=== PATIENT | female | born 1985 | race Caucasian/White ===

== ENCOUNTER → 2020-01-21 | Outpatient (CLI) | payer BC, OTHER | END | disposition home or self-care (01) | LOC: CFH 08:22 | PROVIDERS: ATTEND Nurse Practitioner Family | DX: G43.009 Migraine without aura, not intractable, without status migrainosus (principal); E34.8 Other specified endocrine disorders | CPT/HCPCS: 70450 ==

== ENCOUNTER 2020-04-13 08:59 | Day surgery (SDC) | payer BC, OTHER ==
[~2020-04-13] VITALS: Ht 175.3 cm; Wt 102.1 kg
[~2020-04-13 08:59] MED LIST: BUPIVACAINE/PF-EPI 0.5% 1:200K ONE; NORT10CA PO; OMEP40CA42 PO; SUMA100T4 PO
[2020-04-13 09:12] VITALS: BP 131/78
[2020-04-13] MEDS ORDERED: LACTATED RINGERS 1,000 ML IV SCH (09:16)
[2020-04-13] MEDS ORDERED: CHLORHEXIDINE 15 ML UDC MM ONE (09:16)
[2020-04-13] MEDS ORDERED: INDOCYANINE GREEN 25 MG VIAL IV ONE (09:20)
[2020-04-13] MEDS ORDERED: CHLORHEXIDINE 15 ML UDC ONE (09:25)
[2020-04-13 09:42] LABS: HCG UR SG 1.015 (1.003-1.030)
[2020-04-13] MEDS ORDERED: INDOCYANINE GREEN 25 MG VIAL ONE (09:42)
[2020-04-13] MEDS ORDERED: FENTANYL PF 100 MCG/2ML ONE ×3 (09:54→12:27)
[2020-04-13] MEDS ORDERED: MIDAZOLAM 1 MG/ML, 2ML ONE (09:54)
[2020-04-13] MEDS ORDERED: PROPOFOL 10 MG/ML, 20ML ONE (09:55)
[2020-04-13] MEDS ORDERED: ROCURONIUM 10MG/ML,5ML ONE (09:55)
[2020-04-13] MEDS ORDERED: LIDOCAINE-MPF 2% ,5ML ONE (09:55)
[2020-04-13] MEDS ORDERED: KETOROLAC 30 MG/1 ML IVPush PRN (10:30)
[2020-04-13] MEDS ORDERED: HYDROmorphone 1 MG/ML, 1ML INJ IVPush PRN (10:30)
[2020-04-13] MEDS ORDERED: PROMETHAZINE 25 MG/ML, 1ML IVPush PRN (10:30)
[2020-04-13] MEDS ORDERED: MEPERIDINE/PF 25MG/0.5ML IVPush PRN (10:30)
[2020-04-13] MEDS ORDERED: HYDROcodone/APAP 7.5-325MG/15ML UDC PO PRN (10:30)
[2020-04-13] MEDS ORDERED: DEXAMETHASONE 4 MG/ML, 1ML ONE (11:07)
[2020-04-13] MEDS ORDERED: ONDANSETRON 2MG/ML, 2ML ONE (11:07)
[2020-04-13] MEDS ORDERED: SUCCINYLCHOLINE 20 MG/ML, 10ML ONE (11:07)
[2020-04-13] MEDS ORDERED: GLYCOPYRROLATE 0.2MG/1ML, 5ML ONE (11:07)
[2020-04-13] MEDS ORDERED: NEOSTIGMINE 1 MG/ML, 10ML ONE (11:07)
[2020-04-13] MEDS ORDERED: HYDROcodone/APAP 7.5-325MG/15ML UDC ONE (12:27)
[2020-04-13] MEDS ORDERED: KETOROLAC 30 MG/1 ML ONE (12:27)
[2020-04-13] MEDS: FENTANYL PF 100 MCG/2ML IV PRN ×2 (12:33→12:41)
== END 2020-04-13 13:55 | disposition home or self-care (01) ==
LOC: OUT 08:59 → EDSTATUS 11:30 → OUT 13:55
PROVIDERS: ATTEND Surgery
DX: K80.10 Calculus of gallbladder with chronic cholecystitis without obstruction (principal); K82.8 Other specified diseases of gallbladder; K76.0 Fatty (change of) liver, not elsewhere classified; G43.909 Migraine, unspecified, not intractable, without status migrainosus; K21.9 Gastro-esophageal reflux disease without esophagitis
CPT/HCPCS: 47562; 81025; 88304; J0330; J1100; J1885; J2250; J2405; J2704; J2710; J3010; J7120; U0001